=== PATIENT | male | born 1990 | race Caucasian/White ===

== ENCOUNTER 2018-09-15 22:22 | Emergency (ER) | payer MEDICAID, OTHER ==
[2018-09-15 22:23] VITALS: BMI 24.3
[2018-09-15 22:30] VITALS: BP 121/71; PULSE 67; TEMP 98.1; O2SAT 99
--- NOTE | 2018-09-15 22:54 | C.PDOC ---
History Of Present Illness 28 year old male 3-4 days ago was having sexual intercourse with partner he has been seeing on and off for a few years when the condom broke. Patient immediately went to [facility], had labs done, and advised to follow up in a week for results. He states today he was on google researching possible outcomes and made himself nervous which prompted him to come in for evaluation. Denies any other complaints. Time Seen by Provider: 09/15/18 22:36 Chief Complaint (Nursing): Male Genitourinary History Per: Patient History/Exam Limitations: no limitations Onset/Duration Of Symptoms: Days Current Symptoms Are (Timing): Still Present Past Medical History Reviewed: Historical Data, Nursing Documentation, Vital Signs Vital Signs: Last Vital Signs Temp 98.1 F 09/15/18 22:28 Pulse 67 09/15/18 22:28 Resp 14 09/15/18 22:28 BP 121/71 09/15/18 22:28 Pulse Ox 99 09/15/18 22:28 - Medical History PMH: Denies: Anxiety, Bipolar Disorder, Depression, Personality Disorder, Post Traumatic Stress Disorder, Schizophrenia - [facility] Procedures INJECT/INFUSE NEC (01/18/15) PHYSICAL THERAPY NEC (04/25/15) Family History: States: Unknown Family Hx - Social History Hx Tobacco Use: Yes Hx Alcohol Use: No Hx Substance Use: No - Immunization History Hx Tetanus Toxoid Vaccination: No Hx Influenza Vaccination: No Hx Pneumococcal Vaccination: No Review Of Systems Constitutional: Negative for: Fever, Chills Eyes: Negative for: Pain, Redness ENT: Negative for: Mouth Swelling Cardiovascular: Negative for: Chest Pain, Palpitations Respiratory: Negative for: Cough, Shortness of Breath Gastrointestinal: Negative for: Nausea, Vomiting, Diarrhea Genitourinary: Negative for: Dysuria, Frequency, Hematuria, Penile Discharge, Scrotal Pain, Rash, Penile Pain Musculoskeletal: Negative for: Back Pain Skin: Negative for: Rash Neurological: Negative for: Weakness, Numbness, Dizziness Physical Exam - Physical Exam Appears: Well, Non-toxic, No Acute Distress Skin: Normal Color, Warm Head: Atraumatic, Normacephalic Eye(s): bilateral: Normal Inspection, PERRL, EOMI Oral Mucosa: Moist Neck: Normal ROM, Supple Chest: Symmetrical Respiratory: No Accessory Muscle Use, Other (Normal inspiratory effort) Gastrointestinal/Abdominal: Soft, No Tenderness Neurological/Psych: Oriented x3, Normal Speech, Normal Cranial Nerves (Grossly intact) Gait: Steady ED Course And Treatment O2 Sat by Pulse Oximetry: 99 (Room air) Pulse Ox Interpretation: Normal Medical Decision Making Medical Decision Making: Explained to pt there is no other testing to be done at this time, instructed him to follow up with primary for results. Disposition Counseled Patient/Family Regarding: Studies Performed, Diagnosis, Need For Followup - Disposition Disposition: HOME/ ROUTINE Disposition Time: 22:52 Condition: STABLE Instructions: STD Prevention Forms: [facility] ([place]ian), General Discharge Instructions - Clinical Impression Clinical Impression: Exposure to sexually transmitted disease (STD) - PA / PHOTO CARTOGRAPHER / Resident Statement MD/DO has reviewed & agrees with the documentation as recorded. - Scribe Statement The provider has reviewed the documentation as recorded by the Scribtimbo Baig All medical record entries made by the Connieibtimbo were at my direction and personally dictated by me. I have reviewed the chart and agree that the record accurately reflects my personal performance of the history, physical exam, medical decision making, and the department course for this patient. I have also personally directed, reviewed, and agree with the discharge instructions and disposition.
[2018-09-15 23:04] VITALS: RESP 20
== END 2018-09-15 23:00 | disposition home or self-care (01) ==
LOC: C.ER 22:22
DX: Z20.2 Contact with and (suspected) exposure to infections with a predominantly sexual mode of transmission (principal); Z72.0 Tobacco use